=== PATIENT | male | born 1990 | race Caucasian/White ===

== ENCOUNTER 2023-07-27 20:37 | Outpatient (REF) | payer BC, SELFPAY ==
[2023-07-27 21:05] LABS: Bacteria Rare HPF (Negative); Epithelial Cells Rare HPF (Negative); WBC 0-2 HPF (0-5)
[2023-07-27 21:06] LABS: C & S Indicated? C&S Done As Ordered; Casts Negative LPF (Negative); Crystals Negative HPF (Negative); Mucus Negative (Negative)
== END 2023-07-27 20:38 | disposition home or self-care (01) ==
LOC: LBN 20:37
PROVIDERS: Visit Provider Physician Assistant Medical
DX: R10.9 Unspecified abdominal pain (principal)
CPT/HCPCS: 81015; 87086

== ENCOUNTER 2023-07-28 15:01 | Outpatient (CLI) | payer BC, SELFPAY ==
[2023-07-28 10:15] LABS: Abs Immature Grans 0.02 10^3/uL (0.0-0.06); Absolute Basophil Count 0.03 10^3/uL (0.0-0.2); Absolute Eosinophil Count 0.12 10^3/uL (0.0-0.7); Absolute Lymphocyte Count 2.84 10^3/uL (1.2-3.4); Absolute Monocyte Count 0.77 10^3/uL (0.1-0.8); Absolute Neutrophil Count 3.16 10^3/uL (1.2-6.7); Basophils % 0.4; Eosinophils % 1.7; HCT 41.7 % (40.0-50.0); HGB 14.6 g/dL (13.5-17.5); Immature Grans % 0.3; Lymphocytes % 40.9; MCH 30.4 pg (27.0-33.0); MCV 87 fL (80-95); MPV 9.3 fL (8.0-11.0); Monocytes % 11.1; Neutrophils % 45.6; Platelet Count 261 10^3/uL (130-400); RDW 12.2 % (11.8-14.1); RDW-SD 39.1 fL; WBC 6.94 10^3/uL (4.4-10.8)
[2023-07-28 10:55] LABS: ALT 83 U/L (16-63); AST 119 U/L (15-37); Albumin 3.7 g/dL (3.4-5.0); Alkaline Phosphatase 50 U/L (46-116); Anion Gap 11.8 mmol/L (3-11); BUN 8 mg/dL (7-18); Bilirubin, Total 0.5 mg/dL (0.2-1.0); CO2 24.2 mmol/L (21.0-32.0); Calcium 8.6 mg/dL (8.5-10.1); Chloride 106 mmol/L (98-107); Estimated GFR 103.19 (mL/min/1.73m2); Glucose 106 mg/dL (74-106); Potassium 4.3 mmol/L (3.5-5.1); Sodium 142 mmol/L (136-145)
== END 2023-07-28 15:02 | disposition home or self-care (01) ==
LOC: LBO 15:02
PROVIDERS: Visit Provider Physician Assistant Medical
DX: R10.9 Unspecified abdominal pain (principal)
CPT/HCPCS: 36415; 80053; 85025

== ENCOUNTER 2023-07-31 14:06 | Emergency (ER) | payer BC, SELFPAY ==
[2023-07-31 14:09] VITALS: BP 148/84; PULSE 78; RESP 16; TEMP 37.1; O2SAT 99
--- NOTE | 2023-07-31 14:48 | ED.GENADUL_ITS ---
Discharge Plan Disposition Patient Disposition: Home Condition: Stable Discharge Details Clinical Impression: Dental infection Primary Care Provider: Unknown,Unknown ED Provider: Schuyler Ashton Home Meds and New Rx's Prescriptions: New amoxicillin 875 mg tablet 875 mg PO BID Qty: 20 0RF Discharge Instructions Instructions: Toothache (ED) Additional Instructions: Amoxicillin as directed. [id number] Tylenol and/or Motrin as directed as directed for discomfort. Salt water gargle, swish and spit as tolerated. You may use [id number] temporary tooth filler, Orajel, etc. for symptomatic control. Please watch for new or worsening symptoms and return to the ER for any concerns. Lastly, please contact your dentist later today to discuss your ER visit and need for outpatient follow-up as soon as you are [facility] has been completed. HPI General Mode of arrival: ambulatory . Date/Time Provider Initiated Documentation: 07/31/23 14:17 . Limitations to Documentation: no limitations . Information obtained by: patient . History of Present Illness 32 year old M presents to the emergency department with the chief complaint of Right sided dental pain, described as moderate, with intensity rated at 6. Quality is described as aching, and is localized to the mouth. Patient reports no radiation. Patient started experiencing this day(s) (3) and it has been constant. No relieving factors improve symptom(s), No exacerbating factors reported . Patient notes no other symptoms.. Patient did receive the following treatments prior to arrival, none Related Data Home Medications Medication Instructions Recorded Confirmed amoxicillin 875 mg tablet 875 mg PO BID #20 tabs 07/31/23 Previous Rx's Medication Instructions Recorded amoxicillin 875 mg tablet 875 mg PO BID #20 tabs 07/31/23 General Stated Complaint: DentalOral RAUL: 4 Review of Systems Constitutional Constitutional: Denies fever(s) and Denies headache(s) Eyes Eyes: Denies change in vision ENT Ears, Nose, Mouth, and Throat: Denies headache(s) and Denies neck pain Musculoskeletal Musculoskeletal: Denies neck pain Integumentary/Breasts Skin/Breast: Denies rash Neurologic Neurologic: Denies headache(s) Exam Const General: cooperative, healthy appearing, comfortable and no acute distress Orientation: alert and awake HENMT Head: normal to inspection, normocephalic and atraumatic Ears: external ears normal, TM's normal bilaterally and EAC's normal General nose exam: external nose normal Face images: 2 1. Diffuse mild swelling and tenderness. No erythema, induration or fluctuance. No pointing abscess. No trismus. Mouth: moist mucous membranes Teeth and gingiva: gingiva normal and caries Teeth image: 2 1. Tenderness, dental carry noted. Buccal mucosa unremarkable. Throat: posterior oropharynx normal Eyes Conjunctivae: conjunctivae normal Neck Neck: normal visual inspection, full ROM, no lymphadenopathy, no meningeal signs, trachea midline and supple Resp Effort & Inspection: normal respiratory effort and able to speak in complete sentences Cardio Rate: regular rate Rhythm: regular rhythm Skin General skin exam: no rashes or lesions noted Neuro General: patient alert, patient awake, moves all extremities and no focal motor deficits Sensory Exam: no sensory deficits noted Psych Appearance: grossly normal Mental Status: mental status grossly normal Course Vital Signs Vital signs: Vital Signs Temperature 37.1 C 07/31/23 14:09 Pulse 78 07/31/23 14:09 Respiratory Rate 16 07/31/23 14:09 Blood Pressure 148/84 H 07/31/23 14:09 Pulse Oximetry 99 07/31/23 14:09 Temperature 37.1 C 07/31/23 14:09 Temperature Source Tympanic 07/31/23 14:09 Pulse 78 07/31/23 14:09 Respiratory Rate 16 07/31/23 14:09 Blood Pressure 148/84 H 07/31/23 14:09 Blood Pressure Position Sitting 07/31/23 14:09 Pulse Oximetry 99 07/31/23 14:09 Oxygen Delivery Method Room Air 07/31/23 14:09 Oxygen Flow Rate 0 07/31/23 14:09 Pain Level 8 07/31/23 14:09 Medical Decision Making 32-year-old gentleman who is here for the [place], reports right lower dental pain that began 2-3 days ago. Patient states that he has had previous dental work done while in the but his civilian dentist stated that he recommends that he have additional dental work but this has not happened yet. He is unable to see his dentist until after the [facility], likely a week from now. Clinically he appears well, nontoxic, no evidence of trismus, peritonsillar abscess, or dental abscess. No discomfort today likely secondary to acute infection; however, for definitive care patient will need additional dental work. Plan to provide a prescription of amoxicillin 875 mg twice daily for the next 10 days. We discussed [id number] medications for symptomatic control. Discussed the importance of contacting his dentist later today to discuss his ER visit and need for outpatient dental work ideally as soon as he has done with the [facility]. Encouraged to watch for new or worsening symptoms and return immediately to the ER. Standard discharge and return precautions were provided. Patient understands, is agreeable to this plan, and has no additional questions or concerns upon discharge. This documentation was generated using [employer] system, please disregard any oddities of phrase or misspellings. Quality:SDOH Health Related Social Needs: 2 No Data to Display PFSH All Active Problems (Updated 07/31/23 @ 14:49 by HATTIE Medeiros) Dental infection (Acute) Social History Smoking risk assessment performed?: No
== END 2023-07-31 14:58 | disposition home or self-care (01) ==
PROVIDERS: Emergency Provider Physician Assistant
DX: K08.89 Other specified disorders of teeth and supporting structures (principal); K04.7 Periapical abscess without sinus
CPT/HCPCS: 99283